=== PATIENT | female | born 1995 | race Caucasian/White ===

== ENCOUNTER 2020-03-24 13:13 | Emergency (ER) | payer OTHER, SELFPAY ==
--- NOTE | ~2020-03-24 | US_ITS ---
EXAMINATION: US venous doppler [facility] DATE: 03/24/2020 14:57 INDICATION: Left lower limb pain. TECHNIQUE: Grayscale ultrasound images without and with compression and Doppler ultrasound images of the left lower extremity veins were obtained. COMPARISON: None. FINDINGS: The visualized portions of left common femoral vein, profunda (deep) femoral vein, femoral vein, popl iteal vein, peroneal veins, posterior tibial veins, and greater saphenous vein outflow are patent. IMPRESSION: 1. No deep venous thrombosis. Reviewed, dictated and finalized at location B. HER TENDER
--- NOTE | ~2020-03-24 | XR_ITS ---
EXAMINATION: XR ankle LT min 3V DATE: 03/24/2020 13:49 INDICATION: Left ankle pain and swelling. TECHNIQUE: 4 views of left ankle were obtained. COMPARISON: None. FINDINGS: Bone alignment is normal. No fracture. Joint spaces are well maintained. IMPRESSION: 1. Normal left ankle. Reviewed, dictated and finalized at location B. EAR PLANT EQUIPMENT OPERATOR IMPRESSION: 1. Normal left ankle.
[2020-03-24 13:30] VITALS: BP 133/82; PULSE 84; RESP 18; TEMP 36.4; O2SAT 100
--- NOTE | 2020-03-24 15:01 | ED.EXTPRO ---
HPI - Extremity Problem General Chief complaint: Extremity Problem,Nontraumatic Stated complaint: L LEG PAIN X10 DAYS Time Seen by Provider: 03/24/20 13:39 Source: patient Mode of arrival: ambulatory Limitations: no limitations History of Present Illness HPI Narrative: Patient is a 24-year-old female who presents to emergency department for evaluation of left knee pain that began while working several days ago and now has pain down the leg into the dorsum of the foot pain was initially along the lateral aspect of the left knee worse with weightbearing and activity patient denies similar occurrence in the past on arrival to emergency department is resting comfortably in no distress has not taken anything for her symptoms Review of Systems Review of Systems: All systems reviewed & are unremarkable except as noted in HPI and below PMFSH Social History Social History (Updated 03/24/20 @ 15:02 by Juan Carlos Mccrary PA-C) Smoking status: Former smoker Exam Narrative: Exam Narrative: GENERAL: Well-appearing, well-nourished, and in no acute distress. HEAD: Normocephalic, atraumatic. EYES: PERRLA and EOMI. ENT: Nares clear, no rhinorrhea or epistaxis. Mucous membranes moist. CHEST: Clear to auscultation. No respiratory distress. No wheezes rales or rhonchi HEART: Regular rate and rhythm. No murmur heard. Normal peripheral pulses. EXTREMITIES: Tenderness along the lateral aspect of the left knee along the lateral de paz and into the dorsum of the foot no deformity swelling or other abnormalities noted SKIN: Warm, dry, no rash. NEURO: No focal deficits. Alert and oriented x3. Neurovascularly intact. Capillary refill less than 2 seconds PSYCH: Normal mood and affect. Course Course Emergency Course: Patient in the room evaluated for lower extremity pain no high risk changes in the blood work or imaging will be discharged home for follow-up with primary care Vital Signs Vital signs: Vital Signs Temperature 97.6 F 03/24/20 13:30 Pulse Rate 84 03/24/20 13:30 Respiratory Rate 18 03/24/20 13:30 Blood Pressure 133/82 03/24/20 13:30 Pulse Oximetry 100 03/24/20 13:30 Temperature 97.6 F 03/24/20 13:30 Pulse Rate 84 03/24/20 13:30 Respiratory Rate 18 03/24/20 13:30 Blood Pressure 133/82 03/24/20 13:30 Pulse Oximetry 100 03/24/20 13:30 MDM - Extremity (Nontraumatic) MDM Narrative Medical decision making narrative: Patients injury or pain is consistent with musculoskeletal etiology. No signs of neurological or vascular compromise on exam. Compartments and tisues are soft without signs of compartment syndrome. Pain is felt appropriate for further evaluation on an outpatient basis. Imaging Data Radiologist's impression: ITS Impressions Ankle X-Ray 03/24/20 13:49 IMPRESSION: 1. Normal left ankle. Venous Doppler Study 03/24/20 15:02 IMPRESSION: 1. No deep venous thrombosis. Discharge Plan Discharge Clinical Impression: Leg pain, left Patient Disposition: Home, Self-Care Condition: Stable Instructions: Antibiotic Form, Leg Pain (ED) Additional Instructions: Limited weight on the affected leg until able to bear weight without pain. Ice and elevate extremity. Pain medication as needed and directed. Follow up with your doctor for further care in the next 7 days. Return if symptoms worsen or concerns or any increase in redness swelling pain fever over 100.5 or any loss of feeling or function in the extremity Prescriptions: New ibuprofen [IBU] 600 mg tablet 600 mg PO Q6H PRN (Reason: fever or pain) Qty: 7 RF: 0 Follow-up/Referrals: PHYSICIAN,CNC SUPERVISOR [Primary Care Provider] - Eladio Teague DO [Physician] - Stand Alone Forms: Work/School Release IP
== END 2020-03-24 15:25 | disposition home or self-care (01) ==
PROVIDERS: Emergency Provider Emergency Medicine
DX: M79.662 Pain in left lower leg (principal); Z87.891 Personal history of nicotine dependence
CPT/HCPCS: 73610; 93971; 99284

== ENCOUNTER → 2021-05-02 02:02 | Outpatient (CLI) | payer OTHER, SELFPAY ==
[2021-05-02 14:42] LABS: SARS-CoV-2 RNA PCR Negative
== END ==
PROVIDERS: PCP Nurse Practitioner Family; Visit Provider Internal Medicine Gastroenterology
DX: Z01.812 Encounter for preprocedural laboratory examination (principal); Z20.822 Contact with and (suspected) exposure to COVID-19
CPT/HCPCS: C9803; U0003; U0005

== ENCOUNTER 2022-10-10 14:31 | Emergency (ER) | payer OTHER, SELFPAY ==
[2022-10-10 14:35] VITALS: BP 145/69; PULSE 71; RESP 16; TEMP 36.5; O2SAT 98
[2022-10-10 15:05] LABS: Basophils Percent Auto 0.5 % (0.2-1.2); Eosinophils Percent Auto 0.7 % (0-4.4); Hematocrit 46.5 % (37.0-47.0); Hemoglobin 15.9 g/dL (12.0-15.0); Immature Granulocyte Absolute 0.02 K/mm3 (0.00-0.031); Immature Granulocyte Percent A 0.3 % (0-0.5); Lymphocytes Absolute Auto 1.93 K/mm3 (0.9-3.2); Mean Corpuscular HGB Conc 34.2 g/dl (32-36); Mean Corpuscular Hemoglobin 31.5 pg (26-34); Mean Corpuscular Volume 92.3 fl (80-100); Mean Platelet Volume 10.7 fl (7.4-10.4); Monocytes Absolute Auto 0.5 K/mm3 (0.1-0.6); Monocytes Percent Auto 7.6 % (2.6-8.5); Neutrophils Absolute Auto 3.6 K/mm3 (1.3-6.7); Neutrophils Percent Auto 58.9 % (45.5-73.1); Platelet Count Result 185 k/mm3 (150-375); Red Blood Count 5.04 M/mm3 (4.2-5.4); Red Cell Distribution Width 12.7 % (11.5-14.5)
[2022-10-10 15:14] LABS: Alanine Aminotransferase 28 U/L (6-35); Albumin Level 4.5 g/dL (3.5-5.1); Alkaline Phosphatase 87 U/L (38-126); Anion Gap 8 mmol/L (8-16); Aspartate Amino Transferase 26 U/L (14-36); Bilirubin,Total 0.8 mg/dL (0.2-1.3); Blood Urea Nitrogen 15 mg/dL (7-17); Carbon Dioxide 24 mmol/L (22-30); Chloride 101 mmol/L (98-107); Estimated CRCL calculation 93 ml/min; Estimated Glomerular Filt Rate > 60; Glucose 102 mg/dL (65-110); Potassium 3.6 mmol/L (3.4-5.0); Sodium 133 mmol/L (137-145)
[2022-10-10 15:38] LABS: Appearance Urine Clear (Clear); Bacteria Urine None Seen /hpf; Bilirubin Urine Negative (Negative); Blood Urine Negative (Negative); Color Urine Dark Yellow (Yellow); Glucose Urine UA Negative (Negative); Hyaline Casts Urine Present /lpf; Ketones Urine Negative (Negative); Leukocyte Esterase Ur Trace LEU/UL (Negative); Nitrate Urine Positive (Negative); Non Pathogenic Casts 0-2; Protein Urine Negative (Negative); RBC Urine 0-2 /hpf (0-2); Specific Grav Ur 1.005 (1.001-1.035); Squamous Epithelial Cell Urine None seen /hpf (Few); WBC Urine 0-5 /hpf
[2022-10-10 15:39] LABS: Add Urine Microscopic? YES
--- NOTE | 2022-10-10 17:55 | ED.FEMALEGU ---
HPI - Female Genitourinary General Chief complaint: Urogenital-Female Stated complaint: uti Time Seen by Provider: 10/10/22 16:59 Source: patient Mode of arrival: ambulatory Limitations: no limitations History of Present Illness [facility] Narrative: This is a 27-year-old female who presents to the ED with chief complaint of urinary symptoms and concern for failed treatment of UTI. She states she started having frequency, pain with urination a couple of weeks ago and was seen initially by urgent care. They prescribed cephalexin which she took for a week but felt it did not help. She states she was seen yesterday by urgent care again who prescribed Cipro. She was starting to feel a little achy today with some chills so she came to the ER. Patient states that she has pain in the left flank which radiates anteriorly at times. Denies fevers, nausea, vomiting, problems with bowel movements, chest pain or shortness of breath. Denies any concern for STDs. Denies vaginal symptoms. Related Data Allergies Allergy/AdvReac Type Severity Reaction Status Date / Time No Known Allergies Allergy Verified 04/26/21 13:33 Review of Systems Review of Systems: All systems as dictated in [facility] Social History Social History (Updated 03/24/20 @ 15:02 by Juan Carlos Mccrary, PABev) Smoking status: Current some day smoker Tobacco type: cigarettes Alcohol intake: current Alcohol use details: socially Substance use: never Substance use type: does not use Living arrangements: with family Spiritual care concerns: No Exam Narrative: GENERAL: Well-appearing, well-nourished, and in no acute distress. Sitting up in bed, conversational. HEAD: Normocephalic, atraumatic. EYES: PERRLA and EOMI. ENT: Nares clear, no rhinorrhea or epistaxis. Mucous membranes moist. Oropharynx without tonsillar hypertrophy exudate or other lesions. NECK: Supple. No adenopathy or masses. CHEST: No respiratory distress. Clear to auscultation. No wheezes rales or rhonchi HEART: Regular rate and rhythm. No murmur heard. Normal peripheral pulses. ABDOMEN: Mild tenderness in the left flank. Negative right flank. Soft, otherwise nontender, nondistended, normal active bowel sounds. MSK: Normal range of motion. No edema. SKIN: Warm, dry, no rash. NEURO: Alert and oriented x3. No focal deficits. PSYCH: Normal mood and affect. Course Vital Signs Vital signs: Vital Signs Temperature 97.7 F 10/10/22 14:35 Pulse Rate 71 10/10/22 14:35 Respiratory Rate 16 10/10/22 14:35 Blood Pressure 145/69 H 10/10/22 14:35 Pulse Oximetry 98 10/10/22 14:35 Temperature 97.7 F 10/10/22 14:35 Pulse Rate 71 10/10/22 14:35 Respiratory Rate 16 10/10/22 14:35 Blood Pressure 145/69 H 10/10/22 14:35 Pulse Oximetry 98 10/10/22 14:35 MDM - Female Genitourinary MDM Narrative Medical decision making narrative: This is a 27-year-old female who presents to the ED with chief complaint of urinary symptoms and left flank pain for the past couple of weeks. She failed cephalexin. Vitals are normal. Mild left flank tenderness present. Otherwise her exam is benign. She is very well-appearing. Afebrile. Blood work is unremarkable. No leukocytosis. UA does show nitrite positive urine with trace leuks. It would appear that she still has a UTI present and likely has an element of pyelonephritis as well. Given that she is well-appearing and can tolerate p.o. she should be able to do fine at home. I am switching her to Bactrim. Prescription for Zofran written as well for any possible nausea. Stable for discharge. She is understanding and agreeable with plan for discharge and follow-up with her PCP. Return precautions given. Lab Data 10/10/22 14:54 10/10/22 14:54 Labs: Lab Results 10/10/22 Range/Units 14:54 WBC 6.0 (4.5-10.0) K/mm3 RBC 5.04 (4.2-5.4) M/mm3 Hgb 15.9 H (12.0-15.0) g/dL Hct
== END 2022-10-10 18:07 | disposition home or self-care (01) ==
PROVIDERS: Emergency Medicine; Emergency Provider Physician Assistant
DX: N39.0 Urinary tract infection, site not specified (principal); F17.210 Nicotine dependence, cigarettes, uncomplicated
CPT/HCPCS: 36415; 80053; 81001; 85025; 99283

== ENCOUNTER 2022-11-23 14:31 | Emergency (ER) | payer OTHER, SELFPAY ==
[2022-11-23 15:09] VITALS: BP 121/77; PULSE 75; RESP 16; TEMP 36.6; O2SAT 100
--- NOTE | 2022-11-23 18:01 | PC.NURSE ---
Patient called in waiting room for repeat VS without response.
--- NOTE | 2022-11-23 18:48 | PC.NURSE ---
Called patient for a second time to place in an exam room. Still without a response. Assumed to have left the ER.
== END 2022-11-23 20:49 | disposition left against medical advice (07) ==
LOC: ANHED 18:55
DX: J02.9 Acute pharyngitis, unspecified (principal)
CPT/HCPCS: 99199

== ENCOUNTER 2023-01-18 08:40 | Emergency (ER) | payer OTHER, SELFPAY ==
[2023-01-18 08:43] VITALS: BP 141/85; PULSE 96; RESP 20; TEMP 36.1; O2SAT 100
[2023-01-18] MEDS: KETOROLAC 30 MG/ML VIAL (*BKC) IV PUSH (09:12)
[2023-01-18 09:20] LABS: Basophils Percent Auto 0.6 % (0.2-1.2); Eosinophils Absolute Auto 0.1 K/mm3 (0-0.3); Eosinophils Percent Auto 2.3 % (0-4.4); Hemoglobin 15.5 g/dL (12.0-15.0); Immature Granulocyte Absolute 0.02 K/mm3 (0.00-0.031); Immature Granulocyte Percent A 0.4 % (0-0.5); Lymphocytes Absolute Auto 1.78 K/mm3 (0.9-3.2); Lymphocytes Percent Auto 33.4 % (18.3-44.2); Mean Corpuscular Hemoglobin 31.1 pg (26-34); Mean Corpuscular Volume 94.4 fl (80-100); Mean Platelet Volume 11.3 fl (7.4-10.4); Monocytes Absolute Auto 0.4 K/mm3 (0.1-0.6); Monocytes Percent Auto 6.8 % (2.6-8.5); Neutrophils Percent Auto 56.5 % (45.5-73.1); Platelet Count Result 167 k/mm3 (150-375); Red Blood Count 4.98 M/mm3 (4.2-5.4); Red Cell Distribution Width 12.7 % (11.5-14.5); White Blood Count 5.3 K/mm3 (4.5-10.0)
[2023-01-18 09:25] LABS: Appearance Urine Clear (Clear); Bacteria Urine None Seen /hpf; Bilirubin Urine Negative (Negative); Blood Urine Negative (Negative); Color Urine Yellow (Yellow); Glucose Urine UA Negative (Negative); Ketones Urine Negative (Negative); Leukocyte Esterase Ur Trace LEU/UL (Negative); Nitrate Urine Negative (Negative); Non Pathogenic Casts 0-2; Protein Urine Negative (Negative); RBC Urine 0-2 /hpf (0-2); Specific Grav Ur 1.017 (1.001-1.035); Squamous Epithelial Cell Urine Occasional /hpf (Few); WBC Urine 0-5 /hpf
[2023-01-18 09:31] LABS: Add Urine Microscopic? YES
[2023-01-18 09:35] LABS: Alanine Aminotransferase 35 U/L (6-35); Albumin Level 4.6 g/dL (3.5-5.1); Alkaline Phosphatase 74 U/L (38-126); Anion Gap 12 mmol/L (8-16); Aspartate Amino Transferase 27 U/L (14-36); Bilirubin,Total 0.7 mg/dL (0.2-1.3); Blood Urea Nitrogen 15 mg/dL (7-17); Calcium 9.2 mg/dL (8.4-10.2); Carbon Dioxide 27 mmol/L (22-30); Chloride 101 mmol/L (98-107); Estimated CRCL calculation 92 ml/min; Estimated Glomerular Filt Rate > 60; Glucose 93 mg/dL (65-110); Potassium 3.7 mmol/L (3.4-5.0); Sodium 140 mmol/L (137-145)
--- NOTE | 2023-01-18 10:11 | ED.BACK ---
HPI - Back Pain/Injury General Chief Complaint: Urogenital-Female Stated Complaint: kidney infection Time Seen by Provider: 01/18/23 08:43 Source: patient, RN notes reviewed and old records reviewed Mode of arrival: ambulatory Limitations: no limitations History of Present Illness HPI Narrative: This is a 27 year old female who presents for evaluation of left back pain. She states she developed dull aching pain to left back yesterday. Her pain has been constant. She has not taken any medication or tried any treatment for her pain. Her pain is worse with movement. She denies associated nausea, vomiting, fever, urinary symptoms, hematuria. She rates pain 7/10. She reports history of ovarian cyst but those pains are normally abdominal pain and worsen. She denies abdominal pain. Related Data Allergies Allergy/AdvReac Type Severity Reaction Status Date / Time No Known Allergies Allergy Verified 01/18/23 08:45 Review of Systems Constitutional: Constitutional: Denies weakness Cardiovascular: Cardiovascular: Denies syncope, Denies rapid heart rate, Denies irregular heart rhythm, Denies leg edema and Denies dyspnea Respiratory: Respiratory: Denies chest congestion, Denies hemoptysis, Denies excessive phlegm production and Denies dyspnea Gastrointestinal: Gastrointestinal: Denies abdominal pain, Denies hematochezia, Denies diarrhea and Denies vomiting Genitourinary: Genitourinary: Denies hematuria and Denies dysuria Musculoskeletal: Musculoskeletal: Reports back pain, Denies joint swelling, Denies loss of height and Denies muscle weakness Neurologic: Denies syncope, Denies focal weakness and Denies weakness PMFSH Past Medical History Medical History (Updated 01/18/23 @ 10:16 by Keena Sanchez MD) Patient denies medical problems Surgical History Surgical History (Updated 01/18/23 @ 10:11 by Keena Sanchez MD) H/O bilateral salpingectomy Social History Social History Smoking status: Current some day smoker Tobacco type: cigarettes Alcohol intake: current Alcohol use details: socially Substance use: never Substance use type: does not use Living arrangements: with family Spiritual care concerns: No Exam Const: General: no acute distress and alert Nutritional Appearance: well nourished Orientation/consciousness: patient oriented x3 HENMT: Head: normal to inspection Eyes: EOM: EOMs intact bilaterally Resp: Effort & Inspection: normal respiratory effort Auscultation: clear to auscultation bilaterally Cardio: Rate: regular rate Rhythm: regular rhythm Heart sounds: no murmurs GI: GI Palp: Yes Soft to palpation, No Tenderness to palpation present (GI), No Guarding due to palpation present (GI) and No Rigid due to palpation Auscultation: normal bowel sounds : General: Yes no CVA tenderness Back/Spine/Pelvis: Back: no CVA tenderness Skin: General skin exam: normal color Rashes: no rashes Wounds: no wounds Neuro: General: patient oriented x3, moves all extremities and CN's II-XI intact bilaterally Extrem: General: normal to inspection Psych: Mental Status: mental status grossly normal Affect: normal affect Attitude: cooperative Course Reevaluation(s) Reevaluation #1: I discussed with patient that no definite UTI, no hematuria to suggest kidney stone. no leukocytosis so suggest pyelephritis. PAtient likely having muscular back pain. I discussed I do not think she needs imaging at this time. Date: 01/18/23 Time: 10:16 Vital Signs Vital signs: Vital Signs Temperature 97 F L 01/18/23 08:43 Pulse Rate 96 01/18/23 08:43 Respiratory Rate 20 01/18/23 08:43 Blood Pressure 141/85 H 01/18/23 08:43 Pulse Oximetry 100 01/18/23 08:43 Oxygen Delivery Room Air 01/18/23 08:43 Temperature 97 F L 01/18/23 08:43 Pulse Rate 96 01/18/23 08:43 Respiratory Rate 20 01/18/23 08:43 Blood Pressure 141/8
[2023-01-18] MEDS: CYCLOBENZAPRINE HCL 10 MG TABLET PO (10:20)
[2023-01-18 10:21] VITALS: BP 117/67; PULSE 60; RESP 20; O2SAT 98
== END 2023-01-18 10:27 | disposition home or self-care (01) ==
PROVIDERS: Emergency Provider General Practice
DX: M54.50 Low back pain, unspecified (principal); F17.210 Nicotine dependence, cigarettes, uncomplicated
CPT/HCPCS: 36415; 80053; 81001; 81025; 85025; 96374; 99284; A9270; J1885

== ENCOUNTER 2023-03-01 11:31 | Outpatient (CLI) | payer OTHER, SELFPAY | END 2023-03-01 11:32 | disposition home or self-care (01) | PROVIDERS: Visit Provider Obstetrics & Gynecology | DX: Z01.818 Encounter for other preprocedural examination (principal); N92.0 Excessive and frequent menstruation with regular cycle | CPT/HCPCS: 36415; 86850; 86900; 86901 ==

== ENCOUNTER 2023-03-06 00:29 | Day surgery (SDC) | payer BC, OTHER, SELFPAY ==
[2023-02-21 09:29] VITALS: BMI 29.9
--- NOTE | 2023-02-21 09:34 | PC.NURSE ---
Report to the Outpatient Waiting Room, entrance under the green pavilion located off [facility], at time 7:00 on date 03/06/23. Planned Procedure Time: 9:00. Time changes happen often and if your time is changed the preop area will call you the afternoon before. - You and your visitor will be asked to self-screen and do not enter if you have any COVID symptoms. - A mask is optional within the hospital at this time. Patients may have clear liquids (water, carbonated beverages, clear teas, apple juice) until 3 hours prior to surgery (6:00) with a maximum of 20 ounces. - No food from midnight until time of surgery Take the following medications with a SIP of water the morning of surgery: TYLENOL IF NEEDED DO NOT STOP ANY OF YOUR OTHER PRESCRIPTION MEDICATIONS PRIOR TO SURGERY ?EXCEPT THE FOLLOWING Medications to discontinue per physician: EXCEDRIN Date to take last dose: PER INSTRUCTIONS FROM DR. DIAZ Please no make-up, nail korean, hairspray, perfume, deodorant, or body powder the day of surgery. No jewelry (including any body piercings) or valuables the day of surgery, leave them at home. Please take a shower or bath the night before, or the morning of, surgery with an antibacterial soap. Wear comfortable, loose fitting clothing. - Jewelry must be removed prior to entering the operating room. Rings and piercings that are not removed may be cut off. - The hospital will not accept responsibility for valuables. - Please leave all valuables, including medications, at home the day of surgery. If you are going home after surgery, a licensed school bus driver/teacher assistant must drive you home. - NO public transportation without another adult if you receive anesthesia. - We recommend that an adult stay with you for 24 hours following discharge. - We also recommend that you do not drive, make important decision, drink alcoholic beverages, or take any drugs that were not prescribed by your health care provider for at least 24 hours after your discharge time. Follow any additional instructions given to you from your surgeon. If you or anyone in your household have experienced Covid symptoms in the past week, please notify your surgeon or the nurse liaison at the phone number below for possible testing. Telephone instructions given to PT - ALFONSO TAYLOR and asked if any additional questions and then verbalized understanding. Patient advised to call surgeon office or pre surgery nurse liaison [phone] if any additional questions.
[2023-03-06] VITALS (14 sets, daily range): BP systolic 111–132; BP diastolic 61–86; PULSE 75–99; RESP 12–20; TEMP 36.2–37.1; O2SAT 95–100
[2023-03-06] MEDS: ACETAMINOPHEN 500 MG TABLET 1000 MG PO (08:10)
[2023-03-06] MEDS: KETOROLAC 15 MG/ML VIAL (*BKC) IV PUSH (08:10)
[2023-03-06] MEDS: LACTATED RINGERS 1,000 ML 30 ML IV CONT ×2 (08:10→11:05)
[2023-03-06] MEDS: SCOPOLAMINE 1 MG PATCH 1 PATCH TRANSDERM (08:10)
--- NOTE | 2023-03-06 08:11 | P.PNAN_ITS ---
Anes - Initial Pre Proc Eval Procedure: Operation Date: 03/06/23 09:00 Proposed Procedures p Total Laparoscopic Hysterectomy with Bilateral Salpingectomy - Alton Hicks MD Date/Time: 03/06/23 08:11 Surgeon: lAton Hicks MD Pre Op Diagnosis: menorrhagia Patient Data Age: 27 Gender: F Height: 1.65 m Weight: 81.65 kg Allergies Allergy/AdvReac Type Severity Reaction Status Date / Time No Known Allergies Allergy Verified 02/21/23 09:27 Home Medications Medication Instructions Recorded Confirmed Type acetaminophen 500 mg tablet 500 mg PO Q6H PRN Pain 02/21/23 02/21/23 History uaxvydn-travvwjqmeywi-yiqagblr 250 1 tablet PO Q4-6H PRN Pain 02/21/23 02/21/23 History mg-250 mg-65 mg tablet (Excedrin Migraine) Patient hx anesthesia problems: none Family hx anesthesia problems: none Results Review: All pre-operative results and documents have been reviewed as part of the pre- operative evaluation. [facility] Past Medical History Medical History (Updated 03/06/23 @ 08:11 by Roque Dao MD) Obesity Surgical History Surgical History H/O bilateral salpingectomy Social History Social History Smoking packs per day: 0.5 Smoking cigarettes per day: 10.0 Years smoked: 10 Smoking pack-years: 5.00 Smoking status: Current every day smoker Tobacco type: cigarettes Alcohol intake: current Alcohol use details: 2/MONTH Substance use: never Substance use type: does not use Living arrangements: with family Spiritual care concerns: No Anes - Eval Final PreProcedure Day of Procedure 03/06/23 08:11 Patient weight: obese Heart: regular rate and rhythm Lungs: clear to auscultation Airway: Mallampati scale class II Neurological: alert and oriented Last oral intake: >/= 8 hours ASA classification: II Emergent: no Anesthetic plan: proceed Anesthesia type and monitoring: general ETT and standard monitoring Results Review: All pre-operative results and documents have been reviewed as part of the pre- operative evaluation. Informed Consent: The patient's anesthetic plan and its attendant risks and benefits were discussed with the patient/family/POA. Questions were solicited and answers provided to the satisfaction of the patient/family/POA.
--- NOTE | 2023-03-06 08:13 | WPDHPUPDATE1 ---
History and Physical Update Update Date/Time: 03/06/23 08:13 History and Physical has been reviewed, including an updated exam of the patient. There are NO changes in the patient's condition. Risks, benefits, and alternatives have been discussed and questions answered. Patient agrees to proceed with procedure.
[2023-03-06] MEDS: ceFAZolin 2 GM/D5W 50 ML 2 GM/50 ML BAG IVPB (08:53)
[2023-03-06] MEDS: ceFAZolin SODIUM 1 GM VIAL (08:53)
--- NOTE | 2023-03-06 11:09 | W.PM.PROC2 ---
Procedure Note - Detailed Date of Procedure 03/06/23 Pre-op Diagnosis menorrhagia Post-op Diagnosis Same Procedure Performed Total laparoscopic hysterectomy and bilateral salpingectomy. Surgeon Alton Hicks MD Anesthesia General Indications Heavy vaginal bleeding Findings mildly enlarged uterus, normal-appearing ovaries, truncated Fallopian tubes, status post ligation. Description of Procedure This patient was taken to the operating room. She was prepped and draped in the dorsal lithotomy position after induction of general anesthesia. The uterine manipulator and Divina cup were placed. This was done with a speculum and tenaculum. The speculum was placed. The cervix was grasped with a tenaculum. The stay sutures were placed at 3 and 9:00 a.m.. The stay sutures of 0 Vicryl were brought through the appropriately sized Divina cup. The tip of the SERVANDO manipulator was placed in the intrauterine cavity. The cup was slid into place around the cervix and into the fornices. It was locked into place. The sutures were then wrapped around the handle and tied under tension. A 5 mm skin incision was made in the left upper quadrant the abdomen. A 5 mm trocar was inserted into the intrauterine cavity under direct visualization of the scope. Pneumoperitoneum was achieved. A left lower quadrant 11 mm incision was made with scalpel. An 11 mm trocar was inserted into the anterior abdominal cavity under direct visualization the scope. A 5 mm infraumbilical incision was made with a scalpel and a 5 mm trocar was inserted the intra-abdominal cavity under direct visualization of the scope. Bilateral ureteral lysis was performed. This was done from the pelvic brim down to the uterine artery. This was done with careful dissection using sharp and blunt dissection. The fallopian tubes were removed bilaterally. The mesosalpinx around the fallopian tubes were cauterized transected with LigaSure cautery. This was done in a bilateral fashion from the ovary to the uterine cornua. The fallopian tube was transected at the uterine cornu and amputated. The tube was taken out the left lower quadrant trocar site. In a stepwise fashion along the lateral aspects of the uterus the round ligament and broad ligaments were cauterized transected down to the level of the uterine arteries. A bladder flap was created in the bladder was moved distally to the end of the cervix and over the Divina cup. The bilateral uterine arteries were cauterized and transected. Colpotomy was then performed. In a circumferential fashion the vagina was transected using unipolar cautery. The incision was made down on the Divina cup. The uterus and cervix were taken out through the vagina. A pneumo occluder was placed in the vagina. The vaginal cuff was closed with a 0 V lock suture in a running fashion. The pelvis was irrigated with copious amounts antibiotic irrigation. The ureters were again examined and found to be intact and flowing freely under the uterine arteries into the bladder. The bladder was intact. It was examined directly. The vagina was irrigated with Betadine solution after removal of the Pneumo occluder. The patient was taken to recovery room. She was stable condition. Sponge lap and needle counts were correct x2. Drains Yes Packing No Pathology Yes Complications No immediate complications Condition Stable Disposition Floor
[2023-03-06] MEDS: fentaNYL CITRATE INJ (*CRX) 100 MCG/2 ML VIAL 25 MCG IV PUSH ×4 (12:27→13:18)
--- NOTE | 2023-03-06 13:34 | SUR.PHASEI ---
1205-Pt meets anesthesia criteria for discharge, no OB room available-charge nurse with keep us posted.
--- NOTE | 2023-03-06 13:55 | ADMGEN ---
1355-This patient, Nenita Graves, was admitted to -. Patient/family oriented to hospital policies and general routines including ID bracelet, bed and alarms, visiting hours, pain management, procedures, bathroom and other care routines, personal items, smoking policy, room service/diet, and visiting hours. Information on how to activate the Rapid Response Team has been discussed. Patient/Family are encouraged to report perceived risks to care and to ask questions if they do not understand what they are told or what they should do.
[2023-03-06] MEDS: KETOROLAC 30 MG/ML VIAL (*BKC) IV PUSH (14:31)
[2023-03-06] MEDS: DEXTROSE 5%/0.45% SOD CHL 1,000 ML 125 ML IV CONT (14:32)
[2023-03-06] MEDS: HYDROcodone/acetaminophen (*CRX) 10-325 MG TABLET 1 TAB PO ×2 (15:56→19:00)
[2023-03-07] VITALS: BP 116/64; PULSE 63; RESP 18; TEMP 37.5; O2SAT 98
[2023-03-07 05:00] VITALS: BP 92/45; PULSE 98; RESP 18; TEMP 36.5; O2SAT 98
[2023-03-07 07:55] VITALS: BP 130/67; PULSE 54; RESP 16; TEMP 37.5; O2SAT 99
[2023-03-07 08:00] VITALS: PULSE 53; RESP 16; O2SAT 98
[2023-03-07] MEDS: HYDROcodone/acetaminophen (*CRX) 10-325 MG TABLET 1 TAB PO (08:01)
--- NOTE | 2023-03-07 08:26 | PM.GYNPNOP ---
[employer] - A/P Postoperative Procedures: Procedures Operation Date: 03/06/23 09:00 Actual Procedure Side Surgeon p Total Laparoscopic Hysterectomy with Bilateral Salpingectomy Bilateral Alton Hicks MD Postoperative day: 1 Postoperative status: doing well Postoperative plan: see orders Time Spent With Patient Time: Total time spent is greater than 50% in coordination of care (as documented) at patient's floor/unit and/or counseling patient: Time with patient: less than 15 minutes [employer]ILD [employer]- PN:Subj Post-Op Subjective Date/time seen: 03/07/23 08:26 Subjective: patient reports feeling better, patient has no complaints and pain is well controlled Exam Const: General: healthy appearing, comfortable and no acute distress Resp: Auscultation: clear to auscultation bilaterally, no rales, no rhonchi and no wheezes Cardio: Rate: regular rate Heart sounds: no click, no murmurs and no rubs GI: Inspection: non-distended Auscultation: normal bowel sounds Extrem: General: normal to inspection, no pedal edema and no calf tenderness [employer]ILD [employer]AD [employer]ER - PN: Obj Data Vital Signs Vital Signs: Vital Signs - 24 hr 03/06/23 11:05 03/06/23 11:20 03/06/23 11:35 Temperature 98.7 F Pulse Rate 92 88 80 Respiratory Rate 20 12 19 Blood Pressure 121/69 132/71 129/78 Pulse Oximetry 100 100 100 Oxygen Delivery Simple Face Mask Simple Face Mask Room Air Oxygen Flow Rate 6 6 03/06/23 11:50 03/06/23 12:05 03/06/23 12:20 Temperature Pulse Rate 77 76 76 Respiratory Rate 16 14 16 Blood Pressure 128/80 127/78 126/81 Pulse Oximetry 100 97 97 Oxygen Delivery Room Air Room Air Room Air Oxygen Flow Rate 03/06/23 12:35 03/06/23 12:50 03/06/23 13:05 Temperature Pulse Rate 87 79 81 Respiratory Rate 20 15 17 Blood Pressure 124/78 125/80 127/86 Pulse Oximetry 97 97 98 Oxygen Delivery Room Air Room Air Room Air Oxygen Flow Rate 03/06/23 13:20 03/06/23 13:35 03/06/23 14:00 Temperature 98.2 F Pulse Rate 76 80 82 Respiratory Rate 12 15 16 Blood Pressure 120/71 124/73 124/76 Pulse Oximetry 95 97 97 Oxygen Delivery Room Air Room Air Oxygen Flow Rate 03/06/23 14:00 03/06/23 19:00 03/07/23 00:00 Temperature 98.2 F 99.5 F Pulse Rate 82 75 63 Respiratory Rate 16 18 18 Blood Pressure 123/61 116/64 Pulse Oximetry 97 97 98 Oxygen Delivery Room Air Oxygen Flow Rate 03/07/23 05:00 03/07/23 08:00 Temperature 97.7 F Pulse Rate 98 53 L Respiratory Rate 18 16 Blood Pressure 92/45 L Pulse Oximetry 98 98 Oxygen Delivery Room Air Oxygen Flow Rate Intake/Output Intake/Output: Intake & Output 03/04/23 03/05/23 03/06/23 03/07/23 23:59 23:59 23:59 23:59 Intake Total 1807 Output Total 2190 Balance -383 Meds/Results Medications: Active Medications Generic Name Dose Route Start Last Admin Trade Name Freq PRN Reason Stop Dose Admin Hydrocodone Bitart/Acetaminophen 1 tab 03/06/23 13:50 Hydrocodone/Acetaminophen (*Crx) 5-325 Mg Tablet PO Q3H PRN Pain Rated 5 or Less Hydrocodone Bitart/Acetaminophen 1 tab 03/06/23 13:50 03/07/23 08:01 Hydrocodone/Acetaminophen (*Crx) 10-325 Mg Tablet PO 1 tab Q3H PRN Administration Pain Rated 6 or Greater Dextrose/Sodium Chloride 1,000 mls @ 125 mls/hr 03/06/23 13:50 03/06/23 17:30 Dextrose 5% Sodium Chloride 0.45% IV CONT 125 mls/hr .Q8H FERMIN Infusion Ibuprofen 600 mg 03/06/23 13:50 Ibuprofen 600 Mg Tablet PO Q6H PRN Cramping Ketorolac Tromethamine 30 mg 03/06/23 13:50 03/06/23 14:31 Ketorolac 30 Mg/Ml Vial (*Bkc) IV PUSH 03/11/23 13:49 30 mg Q6H PRN Administration Pain Rated 4-6 Naloxone HCl 0.1 mg 03/06/23 13:50 Naloxone Hcl 0.4 Mg/Ml Vial IV PUSH Q2M PRN Respiratory rate less than 10 Ondansetron HCl 4 mg 03/06/23 13:50 Ondansetron Inj 4 Mg/2 Ml Vial IV PUSH Q6H PRN Nausea And Vomiting
== END 2023-03-07 09:50 | disposition home or self-care (01) ==
LOC: ANHSURGERY 06:56 → ANHOB2 14:12
PROVIDERS: Visit Provider Obstetrics & Gynecology
PROC: 0UT9FZZ Resection of Uterus, Via Natural or Artificial Opening With Percutaneous Endoscopic Assistance (ICD-10-PCS; CPT 58571; principal; 2023-03-06 09:00)
DX: N92.0 Excessive and frequent menstruation with regular cycle (principal); F17.210 Nicotine dependence, cigarettes, uncomplicated; E66.9 Obesity, unspecified; Z68.29 Body mass index [BMI] 29.0-29.9, adult; Z98.51 Tubal ligation status; Z79.82 Long term (current) use of aspirin; Z80.3 Family history of malignant neoplasm of breast
CPT/HCPCS: 58571; 88307; 99199; A9270; J0330; J0690; J1100; J1170; J1885; J2250; J2405; J2704; J3010; J7030; J7120; Q9968